=== PATIENT | male | born 1965 | race Caucasian/White ===

== ENCOUNTER 2020-11-15 07:43 | Day surgery (SDC) | payer OTHER ==
[2020-11-15] MEDS ORDERED: Sodium Chloride 0.9% 1,000 ML IV SCH (08:00)
[2020-11-15] MEDS ORDERED: Propofol 200 MG/20 ML SDV ONE ×2 (08:43→10:00)
[2020-11-15] MEDS ORDERED: fentaNYL 100 MCG/2 ML SDV ONE (08:43)
[2020-11-15] MEDS ORDERED: Midazolam 1 MG/ML 2 ML SDV ONE (08:43)
[2020-11-15 11:43] VITALS: BP 120/78; PULSE 71
--- NOTE | 2020-11-18 09:41 | OR ---
DATE OF PROCEDURE: 11/15/2020 SURGEON: Rashard Baptiste MD PROCEDURE: Colonoscopy. FINDINGS: Normal colonoscopy. COMPLICATIONS: None. [employer]: None. ANESTHESIA: MAC. PREOPERATIVE DIAGNOSIS: Screening colonoscopy. POSTOPERATIVE DIAGNOSIS: Screening colonoscopy. RISKS: Risks, benefits, alternatives, and limitations including but not limited to infection, bleeding, perforation, and false positives and false negatives were explained to the patient. They wished to proceed. PROCEDURE IN DETAIL: The patient was placed in left lateral decubitus position. Digital rectal exam was performed without abnormality. The scope was introduced and advanced atraumatically to the ileocecal valve. A photo was taken of this. The scope was brought back to the ascending, transverse, and descending colon and retroflexed. No evidence of old or new blood. No masses. No polyps. No diverticulosis. No colitis. Greater than 8 minutes was spent removing the scope. Approximately 90% of luminal surface could be seen. The patient tolerated the procedure well. Rashard Baptiste MD /[id number]
== END 2020-11-15 11:30 | disposition home or self-care (01) ==
LOC: JP.SDS 07:43
PROVIDERS: ATTEND Surgery
DX: Z12.11 Encounter for screening for malignant neoplasm of colon (principal)
CPT/HCPCS: 45378; J2250; J2704; J3010; J7030

== ENCOUNTER 2021-08-29 06:10 | Day surgery (SDC) | payer OTHER ==
[2021-08-29] MEDS ORDERED: Lidocaine 1% with EPINEPHrine 1:100,000 50 ML MDV ONE (06:53)
[2021-08-29] MEDS ORDERED: Bupivacaine 0.5% 50 ML MDV ONE (06:53)
[2021-08-29] MEDS ORDERED: metroNIDAZOLE/Normal Saline 500 MG in Premix Bag 1 BAG IV ONE (07:00)
[2021-08-29] MEDS ORDERED: Sodium Chloride 0.9% 1,000 ML IV SCH (07:00)
[2021-08-29] MEDS ORDERED: Neostigmine Methylsulfate 1 MG/ML 5 ML Syringe ONE (07:15)
[2021-08-29] MEDS ORDERED: Glycopyrrolate 0.2 MG/ML 5 ML MDV ONE (07:15)
[2021-08-29] MEDS ORDERED: Ondansetron 4 MG/2 ML SDV ONE (07:15)
[2021-08-29] MEDS ORDERED: Rocuronium 50 MG/5 ML Vial ONE (07:15)
[2021-08-29] MEDS ORDERED: Propofol 200 MG/20 ML SDV ONE (07:15)
[2021-08-29] MEDS ORDERED: Dexamethasone 4 MG/ML SDV ONE (07:15)
[2021-08-29] MEDS ORDERED: Succinylcholine 200 MG/10 ML MDV ONE (07:15)
[2021-08-29] MEDS ORDERED: fentaNYL 250 MCG/5 ML SDV ONE ×2 (07:16→07:55)
[2021-08-29] MEDS ORDERED: ceFAZolin 2 GM in Premix Bag 1 BAG IV ONE (07:30)
[2021-08-29] MEDS ORDERED: Zolpidem 5 MG Tab PO PRN (08:41)
[2021-08-29] MEDS ORDERED: Ondansetron 4 MG/2 ML SDV IVPUSH PRN (08:41)
[2021-08-29] MEDS ORDERED: Docusate Sodium 100 MG Cap PO PRN (08:41)
[2021-08-29] MEDS ORDERED: Benzocaine/Cetylpyridinium/Menthol Lozenge MUCMEM PRN (08:41)
[2021-08-29] MEDS ORDERED: hydrOXYzine HCL 100 MG/2 ML SDV IM PRN (08:41)
[2021-08-29] MEDS ORDERED: Acetaminophen/HYDROcodone 325-5 MG Tab PO PRN (08:41)
[2021-08-29] MEDS ORDERED: Scopolamine 1.5 MG Transdermal Patch TOP ONE (08:41)
[2021-08-29] MEDS ORDERED: fentaNYL 100 MCG/2 ML SDV IVPUSH PRN ×3 (08:41)
[2021-08-29 12:46] VITALS: BP 138/83; PULSE 72
== END 2021-08-29 13:00 | disposition home or self-care (01) ==
LOC: JP.SDS 06:10 → JP.2SS 08:41 → JP.SDS 13:00
PROVIDERS: ATTEND Surgery
DX: K43.9 Ventral hernia without obstruction or gangrene (principal); E66.09 Other obesity due to excess calories; Z68.33 Body mass index [BMI] 33.0-33.9, adult; Z79.899 Other long term (current) drug therapy; Z90.49 Acquired absence of other specified parts of digestive tract
CPT/HCPCS: A9270-GY; C1781; J0171; J0330; J0690; J1100; J2405; J2704; J2710; J2795; J3010; J3490; J7030; J7120